=== PATIENT | female | born 1990 | race Caucasian/White ===

== ENCOUNTER 2024-11-10 17:20 | Outpatient (CLI) | payer OTHER, SELFPAY ==
[2024-11-10 17:39] VITALS: BP 115/57; PULSE 107; RESP 16; TEMP 37.1; O2SAT 97
[2024-11-10 17:44] VITALS: BMI 47.9
--- NOTE | 2024-11-17 13:15 | OB.TRI.NOTE ---
HPI - General General Date of Service: 11/10/24 HPI Narrative KESHA MOTA, is a 34 F who presents for pelvic pressure and possible contractions. PFSH PFSH Home Medications ?Medication ?Instructions ?Recorded ?Last Taken ?Type famotidine 40 mg tablet (Pepcid) 40 mg PO DAILY 11/10/24 11/10/24 08:00 History sertraline 50 mg tablet 50 mg PO DAILY 11/10/24 11/10/24 08:00 History Allergy/AdvReac Type Severity Reaction Status Date / Time penicillin G Allergy Rash Verified 11/10/24 17:45 NST FHR Rate Baby A Baseline: 145 Variability:: Moderate Accelerations:: 15 x 15 Decelerations:: None NST Reactive:: Yes Uterine Activity:: Occasional Assessment & Plan (1) Threatened labor: QUALIFIERS: Trimester: third trimester Qualified Code(s): O47.03 - False labor before 37 completed weeks of gestation, third trimester PLAN: Reactive NST
== END 2024-11-10 18:20 | disposition home or self-care (01) ==
LOC: WPOUT 17:37 → WP 17:38
PROVIDERS: PCP Nurse Practitioner Family; Referring Provider Obstetrics & Gynecology; Visit Provider Obstetrics & Gynecology
DX: O47.03 False labor before 37 completed weeks of gestation, third trimester (principal); Z79.899 Other long term (current) drug therapy; Z3A.37 37 weeks gestation of pregnancy
CPT/HCPCS: 59025; 59050; 99221; G0378

== ENCOUNTER 2024-12-05 07:13 | Inpatient (IN) | payer OTHER, SELFPAY ==
[2024-12-05] VITALS (52 sets, daily range): BP systolic 98–251; BP diastolic 54–149; PULSE 69–153; RESP 15–18; TEMP 36.4–37.6; O2SAT 90–100; BMI 46.8
[2024-12-05] MEDS: Lactated Ringers 1,000 ML 50 ML IV (07:45)
--- NOTE | 2024-12-05 07:56 | HP.PCM.OB_ITS ---
HPI - General General Date of Admission: 12/05/24 HPI Narrative KESHA MOTA, is a 34 F at 39.2 weeks gestation who presents for an induction of labor for obesity. Maternal Data Information VICTORIA Calculator Estimated Delivery Date Method Current WG Current Estimate 12/10/24 Manual 39w 2d PFSH [facility] Medical History Family history of hearing loss at age younger than 7 years Infertility Depression Anxiety Home Medications ?Medication ?Instructions ?Recorded ?Last Taken ?Type famotidine 40 mg tablet (Pepcid) 40 mg PO DAILY heartb urn 11/10/24 12/04/24 16:00 History sertraline 50 mg tablet 50 mg PO DAILY anx/dep 11/1012/04/24 16:00 History Allergy/AdvReac Type Severity Reaction Status Date / Time penicillin G Allergy Rash Verified 12/05/24 08:15 Surgical History History of surgery Social History Smoking Status: Never smoker History Elective abortions Hx Para 1 Spontaneous abortions Hx # Term Pregnancies Ectopic pregnancies Hx # Pregnancies Multiple births # of living children NST FHR Rate Baby A Baseline: 140 Variability:: Moderate Accelerations:: 15 x 15 Decelerations:: None NST Reactive:: Yes FHR Category:: Category I ROS Eyes Eyes: Denies blurry vision, change in vision or spots in vision ENT HEENT: Denies dizziness or headache(s) Cardiovascular Cardiovascular: Denies abdominal pain, chest pain or dyspnea Respiratory/Chest Respiratory/Chest: Denies cough, dyspnea, shortness of breath at rest or shortness of breath with exertion Gastrointestinal Gastrointestinal: Denies abdominal pain, diarrhea or vomiting Genitourinary Genitourinary: Denies change in urinary stream, difficulty urinating or dysuria Musculoskeletal Musculoskeletal: Reports none Integumentary Integumentary: Denies rash Neurologic Neurologic: Denies dizziness, headache(s), memory loss or weakness Psychiatric Psychiatric: Reports none Vital Signs Vital Signs Vital Signs: Weight Weight: 264 lb 9.6 oz Body Mass Index (BMI) 46.8 Physical Exam Const alert, oriented x3 and no apparent distress General Appearance: cooperative Orientation / Consciousness: awake Exam Limitations: no limitations HEENT normocephalic Head and Scalp: normal to inspection Eyes General Eye: normal appearance of both eyes Neck full ROM and no lymphadenopathy Lymph Lymphatic: no lymphadenopathy noted Chest inspection of chest normal Resp normal respiratory effort, normal air movement and clear to auscultation bilaterally Effort and Inspection: able to speak in complete sentences and symmetric chest movement Cardio regular rate and regular rhythm GI normal to inspection, nondistended, normoactive bowel sounds Manual OB Exam: presentation cephalic Back/Spine normal ROM Extremity full ROM and no calf tenderness Skin no rashes or lesions noted General Skin Exam: no breakdown Neuro oriented x3 and CN's II-XII intact bilaterally Psych mental status grossly normal and thought process normal Labs Labs Labs: Blood Type Pending Antibody Screen Pending Hct 33.1 % (37-47) L Hgb 11.0 g/dL (12.0-15.0) L Syphilis Total Ab Pending Assessment & Plan (1) 39 weeks gestation of : (2) Obesity affecting : (3) Encounter for induction of labor: (4) Anxiety and depression: (5) Anemia affecting : PLAN: Plan Admit to labor and delivery Routine labs Start IV fluids and run per orders GBS negative CE /-2 Worley bulb placed without difficulty and filled with 30 cc N/S Start Pitocin at 2 mu/min and increase per orders Epidural when indicated Anticipate Dr. Montague notified and is collaborating physician
[2024-12-05] MEDS: Oxytocin 15 Units/NS 250ml 15 UNITS/250 ML IV.SOLN 2 UNITS IV (08:09)
[2024-12-05 08:10] LABS: Absolute Lymphocyte Count 2.25 X10^3/uL (0.83-4.51); Basophil# 0.02 X10^3/uL; Basophil% 0.2 % (0-1); Eosinophil# 0.08 X10^3/uL; Eosinophils% 0.9 % (0-5); Hematocrit 33.1 % (37-47); Lymphocyte # 2.25 X10^3/ul (0.83-4.51); Lymphocyte % 25.1 % (19-41); Mean Corp Hgb Conc 33.2 g/dL (32-36); Mean Corpuscular Hgb 29.2 pg (27.0-32.0); Mean Corpuscular Volume 87.8 fL (81-99); Mean Platelet Vol. 11.5 fl (6.2-12.0); Monocyte# 0.56 X10^3/uL; Monocyte% 6.2 % (0-10); NRBC Flagged by Analyzer 0 % (0-5); Neutrophil # 6.01 X10^3/uL (2.7-7.7); Neutrophil % 66.9 % (47-70); Platelet Count 216 K/mm3 (150-450); RBC Distribution Width CV 13.8 % (11.6-14.6); RBC Distribution Width SD 42.9 fl (35.1-43.9); Red Blood Count 3.77 M/mm3 (4.2-5.4)
[2024-12-05] MEDS: 0.9% Normal Saline Single 100 ML IV.SOLN. INTRA-UTER (08:21)
[2024-12-05 10:33] LABS: Syphilis Antibodies Non-reactive
[2024-12-05] MEDS: Lactated Ringers 1,000 ML 999 ML IV (10:41)
[2024-12-05] MEDS: fentaNYL-bupivacaine (epidural) 100 ML BAG EPIDURAL ×3 (11:34→21:43)
[2024-12-05] MEDS: Ondansetron 4 MG/2 ML Vial IV ×2 (13:30→23:03)
--- NOTE | 2024-12-05 13:44 | PCM.PN.CNM ---
Subjective Subjective Patient seen at bedside. Comfortable with epidural. Objective Data Objective Data Vital Signs: Vital Signs Temp Pulse Resp BP Pulse Ox 98.3 F 85 17 110/71 100 12/05/24 10:35 12/05/24 13:38 12/05/24 13:39 12/05/24 13:38 12/05/24 13:39 Weight: 264 lb 9.6 oz Body Mass Index (BMI) 46.8 Intake & Output: Intake and Output for Last 24 Hours 12/03/24 12/04/24 12/05/24 23:59 23:59 23:59 Intake Total 8.24 / 8.24 Balance 8.24 / 8.24 Lab / Micro Data 12/05/24 07:45 Labs: Laboratory Results - last 24 hr 12/05/24 07:45: WBC 9.0, RBC 3.77 L, Hgb 11.0 L, Hct 33.1 L, MCV 87.8, MCH 29.2, MCHC 33.2, RDW Std Deviation 42.9, RDW Coeff of Jeanie 13.8, Plt Count 216, MPV 11.5, Immature Gran % (Auto) 0.700, Neut % (Auto) 66.9, Lymph % (Auto) 25.1, [place] % (Auto) 6.2, Eos % (Auto) 0.9, Baso % (Auto) 0.2, Absolute Neuts (auto) 6.0, Absolute Lymphs (auto) 2.25, Nucleated RBC % 0, Syphilis Total Ab Non-reactive, Blood Type AB POSITIVE, Antibody Screen NEGATIVE Assessment & Plan (1) Anemia affecting : (2) Anxiety and depression: (3) Encounter for induction of labor: (4) Obesity affecting : (5) 39 weeks gestation of : PLAN: Plan CE 4.5cm/ 80/-3 AROM for clear fluid IUPC and FSE placed per nursing request - difficulty tracing Continue pitocin IV and increase per orders
[2024-12-05] MEDS: Lactated Ringers 1,000 ML 200 ML IV (18:39)
[2024-12-05] MEDS: Mag Hydrox/Al Hydrox/Simeth 30 ML UDC PO (21:43)
--- NOTE | 2024-12-05 22:51 | OB.VAGDELI_ITS ---
Assessment & Plan (1) (spontaneous vaginal delivery): (2) Anemia affecting : (3) Anxiety and depression: (4) Obesity affecting : Maternal Data Information VICTORIA Calculator Estimated Delivery Date Method Current WG Current Estimate 12/10/24 Manual 39w 2d Vaginal Delivery Maternal Presentation Maternal Presentation: Medically Indicated Induction Maternal Presentation: at 39.2 weeks gestation for induction of labor for obesity. Type of Induction: Pitocin, Worley Bulb and Amniotomy Medical Reason for Induction: Maternal Medical Condition: list: (Obesity) Vaginal Delivery Information Procedure Performed: Spontaneous Vaginal Delivery Surgeon/Practitioner: Hiral Leigh Date of Procedure: 12/05/24 Pre-Procedure Diagnosis: Term gestation, Post-Procedure Diagnosis: , Live infant Type of anesthesia: Epidural Estimated Blood Loss: 150 Time of Delivery: 22:36 Findings Description of procedure: Patient progressed to complete dilation. With good maternal effort, head delivered followed by anterior shoulder and remainder of infant body without any force, delay, or traction. Vigorous female was delivered atraumatically and placed on maternal abdomen. Pitocin IV started for active management of the third stage of labor. 3 vessel cord clamped and cut after delay and infant placed immediately skin to skin with patient. Placenta delivered spontaneously and intact. After inspection, vagina and perineum are intact. Vaginal sweep performed. Fundus is firm 2 below U and bleeding is hemostatic. Sponge and sharps counts correct. Patient and infant bonding well at this time. Dr. Rosario notified of delivery. Routine post orders placed. Presentation: Vertex Amniotic Membrane Rupture Type: Artificial Amniotic Fluid Description: Clear Placental Delivery Description: Spontaneous Placenta Disposition: [facility] Specimen collected: No Cord Vessel Description: 3 Vessels Cord Entanglement: None Nuchal Cord Compression: Without compression A Gender: Female (1 minute): 9 (5 minute): 9 Delayed Cord Clamping: Yes Lunchroom Worker research phlebotomist: No Post Vaginal Deli Medications given after delivery: IV Pitocin Episiotomy Description: None Laceration: None Complication Complications: No
[2024-12-05] MEDS: Oxytocin 15 Units/NS 250ml 15 UNITS/250 ML IV.SOLN 83 UNITS IV (23:06)
[2024-12-06] VITALS (27 sets, daily range): BP systolic 102–125; BP diastolic 57–80; PULSE 78–115; RESP 15–18; TEMP 36.4–37; O2SAT 91–99
[2024-12-06] MEDS: Acetaminophen 500 MG Tablet 1000 MG PO (01:14)
[2024-12-06 06:19] LABS: Absolute Lymphocyte Count 2.22 X10^3/uL (0.83-4.51); Absolute Neutrophil Count 12.5 X10^3/uL (2.0-7.7); Basophil# 0.02 X10^3/uL; Basophil% 0.1 % (0-1); Eosinophil# 0.03 X10^3/uL; Eosinophils% 0.2 % (0-5); Hematocrit 32.2 % (37-47); Hemoglobin 10.9 g/dL (12.0-15.0); Lymphocyte # 2.22 X10^3/ul (0.83-4.51); Lymphocyte % 13.9 % (19-41); Mean Corp Hgb Conc 33.9 g/dL (32-36); Mean Corpuscular Hgb 29.5 pg (27.0-32.0); Mean Corpuscular Volume 87.3 fL (81-99); Monocyte# 1.12 X10^3/uL; NRBC Flagged by Analyzer 0 % (0-5); Neutrophil # 12.53 X10^3/uL (2.7-7.7); Neutrophil % 78.2 % (47-70); Platelet Count 203 K/mm3 (150-450); RBC Distribution Width CV 13.5 % (11.6-14.6); RBC Distribution Width SD 41.7 fl (35.1-43.9); Red Blood Count 3.69 M/mm3 (4.2-5.4)
--- NOTE | 2024-12-06 08:40 | PCM.PN.OB ---
Subjective Subjective Doing well per patient and nursing staff. Ambulating and taking PO without difficulty. Voiding and passing flatus. Pain controlled. , services for assistance. Denies headache, visual changes, chest pain, shortness of breath, leg pain or increased bleeding. Lochia normal. Objective Data Objective Data Vital Signs: Vital Signs Temp Pulse Resp BP Pulse Ox O2 Del Method 97.6 F L 79 16 107/59 L 97 Room Air 12/06/24 08:00 12/06/24 08:12 12/06/24 08:00 12/06/24 08:12 12/06/24 08:12 12/06/24 08:00 Oxygen Delivery Method Room Air Weight: 264 lb 9.6 oz Body Mass Index (BMI) 46.8 Intake & Output: Intake and Output for Last 24 Hours 12/04/24 12/05/24 12/06/24 23:59 23:59 23:59 Intake Total 3066.67 / 3066.67 250 / 250 Output Total 1050 / 1050 1700 / 1700 Balance / -1450 / -1450 Lab / Micro Data 12/06/24 06:10 Labs: Laboratory Results - last 24 hr 12/05/24 07:45: Syphilis Total Ab Non-reactive, Blood Type AB POSITIVE, Antibody Screen NEGATIVE 12/06/24 06:10: WBC 16.0 H, RBC 3.69 L, Hgb 10.9 L, Hct 32.2 L, MCV 87.3, MCH 29.5, MCHC 33.9, RDW Std Deviation 41.7, RDW Coeff of Jeanie 13.5, Plt Count 203, MPV 11.0, Immature Gran % (Auto) 0.600, Neut % (Auto) 78.2 H, Lymph % (Auto) 13.9 L, [place] % (Auto) 7.0, Eos % (Auto) 0.2, Baso % (Auto) 0.1, Absolute Neuts (auto) 12.5 H, Absolute Lymphs (auto) 2.22, Nucleated RBC % 0 ROS Constitutional Constitutional: Reports systems reviewed and no addt'l complaints, except as documented; Denies headache(s) Eyes Eyes: Denies acute decrease in peripheral vision, blurry vision or change in vision ENT HEENT: Reports systems reviewed and no addt'l complaints, except as documented Cardiovascular Cardiovascular: Denies chest pain or dizziness Respiratory/Chest Respiratory/Chest: Denies cough, dyspnea, dyspnea on exertion, shortness of breath at rest or shortness of breath with exertion Gastrointestinal Gastrointestinal: Denies abdominal pain, diarrhea, nausea or vomiting Genitourinary Genitourinary: Denies abdominal discomfort Musculoskeletal Musculoskeletal: Denies limited range of motion Integumentary Integumentary: Reports systems reviewed and no addt'l complaints, except as documented Neurologic Neurologic: Reports systems reviewed and no addt'l complaints, except as documented Psychiatric Psychiatric: Reports systems reviewed and no addt'l complaints, except as documented Endocrine Endocrinology: Reports systems reviewed and no addt'l complaints, except as documented Hematologic/Lymphatic Hematologic/Lymphatic: Reports systems reviewed and no addt'l complaints, except as documented Allergic/Immunologic Allergic/Immunologic: Reports systems reviewed and no addt'l complaints, except as documented Physical Exam Const alert and oriented x3 General Appearance: cooperative Orientation / Consciousness: awake, oriented to person, oriented to place and oriented to time Exam Limitations: no limitations HEENT normocephalic Head and Scalp: normal to inspection, normocephalic and atraumatic Face and Sinus: normal facial exam Eyes General Eye: normal appearance of both eyes Neck full ROM Chest Chest: symmetrical chest wall rise Resp normal respiratory effort and normal air movement Auscultation: clear to auscultation bilaterally Cardio regular rate, regular rhythm, S1 normal heart sound, S2 normal heart sound, no murmurs, no rub, no gallops and no clicks GI normal to inspection, nondistended, normoactive bowel sounds and non-tender appearance of the vagina normal Bladder / Kidney Exam: no CVA tenderness Back/Spine normal ROM Extremity normal to inspection and full ROM Skin no rashes or lesions noted Neuro oriented x3, CN's II-XII intact bilaterally and moves all extremities Sensorium / Orientation: awake, alert and oriented to person Motor Exam: clonus absent Deep Tendon Reflexes: Rt Patellar (L4): 2+ and Lt Patellar (L4): 2+ Assessment & Plan (1) (spontaneous vaginal delivery): (2) Lactating mother: PLAN: Plan 1) Routine PPD#1 2) Vitals stable 3) I&O 4) Pain management 5) services PRN 6) Planning D/C home tomorrow
[2024-12-06] MEDS: Sertraline 50 MG Tablet PO (10:57)
[2024-12-07 02:00] VITALS: BP 98/53; PULSE 65; RESP 16; TEMP 36.2; O2SAT 98
[2024-12-07 03:17] VITALS: PULSE 68; O2SAT 97
[2024-12-07 03:18] VITALS: BP 92/53; PULSE 64
[2024-12-07 07:00] VITALS: BP 125/82; PULSE 72; RESP 16; TEMP 36.3; O2SAT 99
[2024-12-07 07:20] VITALS: BP 125/82; PULSE 71
--- NOTE | 2024-12-07 08:52 | PCM.PN.OB ---
Subjective Subjective Doing well. Ambulating and voiding without difficulty. Mild lochia. Breast feeding. Objective Data Objective Data Vital Signs: Vital Signs Temp Pulse Resp BP Pulse Ox O2 Del Method 97.4 F L 71 16 125/82 H 99 Room Air 12/07/24 07:00 12/07/24 07:20 12/07/24 07:00 12/07/24 07:20 12/07/24 07:00 12/07/24 07:00 Oxygen Delivery Method Room Air Weight: 120.021 kg Body Mass Index (BMI) 46.8 Intake & Output: Intake and Output for Last 24 Hours 12/05/24 12/06/24 12/07/24 23:59 23:59 23:59 Intake Total 3066.67 / 3066.67 250 / 250 Output Total 1050 / 1050 1700 / 1700 Balance -1450 / -1450 Lab / Micro Data 12/06/24 06:10 ROS Constitutional Constitutional: Denies fatigue, fever(s) or malaise Eyes Eyes: Denies change in vision ENT HEENT: Denies dizziness or headache(s) Cardiovascular Cardiovascular: Denies chest pain, dyspnea or lightheadedness Respiratory/Chest Respiratory/Chest: Denies cough or dyspnea Gastrointestinal Gastrointestinal: Denies change in bowel habits Genitourinary Genitourinary: Denies burning urination or genital lesions Integumentary Integumentary: Denies rash Neurologic Neurologic: Denies confusion, dizziness, headache(s), numbness or weakness Physical Exam Const alert and no apparent distress Narrative: Fundus firm, below umbilicus. Assessment & Plan (1) (spontaneous vaginal delivery): (2) Lactating mother: PLAN: Plan discharge home breast feeding
--- NOTE | 2024-12-07 08:53 | DS.PCM_ITS ---
Providers Date of Admission: 12/05/24 Date of Discharge: 12/07/24 Primary Care Physician: OLGA RODRIGUEZ Reason For Visit: INDUCTION Diagnosis Discharge Diagnosis (1) (spontaneous vaginal delivery): Status: Acute Code(s): O80 - Encounter for full-term uncomplicated delivery (2) Lactating mother: Status: Acute Code(s): Z39.1 - Encounter for care and examination of lactating mother Plan discharge home breast feeding Medications at Discharge Home Medications famotidine 40 mg tablet (Pepcid) 40 mg PO DAILY heartburn 11/10/24 sertraline 50 mg tablet 50 mg PO DAILY anx/dep 11/10/24 Hospital Course Operations None Procedures None Summary of Care Provided Minutes Spent on Discharge: 21 Hospital Course: IOL for obesity. Uncomplicated delivery and . Breast feeding Physical Exam Const alert and no apparent distress Narrative: Fundus firm, below umbilicus. Weight / BMI Weight Weight: 120.021 kg Body Mass Index (BMI) 46.8 ABG / Lab / Microbiology Data 12/06/24 06:10 D/C Instructions May resume sexual activity in: 6 weeks DC O2, CPAP, BIPAP Needs Home O2 Discharge instructions: No Please Follow Up With: Grace Rosario MD When: Follow up with our office in 1-2 and 6 weeks or as needed. [phone] Meaningful Use Info Meaningful Use Meaningful Use Diagnoses (Choose all that apply): None applicable Ischemic Stroke Statin Dosing Therapy Reference: STATIN DOSE THERAPY REFERENCE: * Patients > 75 years receive moderate or high dose statin therapy. * Patients 75 years or YOUNGER should receive HIGH intensity statin dose unless contraindicated. You will be required to document reason for non-treatment if statin daily dose does not meet guidelines. HIGH DOSE STATIN THERAPY DAILY Atorvastatin > than or = to 40 mg Rosuvastatin > than or = to 20 mg Amlodipine + Atorvastatin > than or = to 2.5/40 mg Ezetimibe + Simvastatin 10/80 mg Simvastatin 80mg Discharge Plan Admission Admit Date/Time: 12/05/24 07:13 Primary Reason for Your Visit: delivery Attending Provider: Hiral Leigh Primary Care Provider: EFREN PERES Discharge Orders/Prescriptions Prescriptions: Continued sertraline 50 mg tablet 50 mg PO DAILY famotidine [Pepcid] 40 mg tablet 40 mg PO DAILY Referrals / Follow Up: JA,EFREN, PROPERTY MANAGEMENT BOOKKEEPER-C [Primary Care Provider] - Disposition Disposition (needs filled in before D/C Order can be placed): Home, Self Care
[2024-12-07] MEDS: Sertraline 50 MG Tablet PO (09:47)
--- NOTE | 2024-12-07 12:03 | CASEMGMT ---
Social Work Assessment Labor and Delivery Unit Patient Address:[address] [place] [id number] Phone number: [phone] Date of Referral: 12/05/24 Time of Referral:? [id number] Referred By: Angelic Paz Date of Intervention: ??12/07/24 Time of Intervention:? 0 Reason for Referral:? mental health Sw completed chart review and acknowledges social work consult due to maternal mental health history. Sw presented to bedside and introduced self to mother of baby (MOB- Sana) and father of baby (FOB- Mahin). Also present was paternal grandma, and MOB stated it was okay to complete assessment with visitor present. History obtained from: medical records, MOB and FOB. Household composition: Currently residing in the family home is DEEPA, TIFF, DEEPA's 12 year old daughter (from a former relationship), Amparo. baby to be included in residence when ready for discharge. Parents deny any problems or concerns with housing. Patient's parent/guardian status:? ?MOB states that she and TIFF met on the internet and then when they met in person for the first time, [place], they have been together now for 8 years. No concerns reported of domestic violence or intimate partner violence. Medical History: ?DEEPA is 34 year old female who is 2, para 1- now 2 following labor and delivery of . DEEPA received routine care during with [facility]. DEEPA presented to hospital and delivered baby via vaginal delivery on 12/05/24 at 39 weeks gestation. Baby girl, named Yuridia Lujan, was born weighing 7lb 12oz with apgars of 9 and 9 at one and five minutes of life, respectfully. DEEPA is breast feeding and reports baby will be followed by Dr.l Perdomo at [facility]. Educational Status:? Both parents graduated from high school, FOB has college education and MOB got her cosmetology license. Financial Status: Both parents are gainfully employed outside of the home. 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 Supplies: All necessary baby supplies obtained including: car seat, safe sleep space, clothes, diapers and wipes. Childcare/Caregiver(s):? MOB and FOAltagracia will be the primary caregivers to baby along with paternal grandma. Transportation:?? NO barriers, both parents have their drivers license and reliable means of transportation. Programs/Agencies Involved: ???Parents are not connected to any community agencies that assist them financially. Children Services/Legal Issues:??? No prior involvement with children services, no issues or concerns warranting referral to be made at this time. Behavioral Health Issues: ??Mental Health History:??FOB denies mental health history. MOB states that she has been diagnosed with anxiety and depression and is currently prescribed zoloft to help her manage her symptoms. MOB states that she believes that her symptoms are managed and she does well to utilize healthy and safe coping mechanisms when she starts to feel overwhelmed or frustrated. ? Substance Use History:?Parents deny substance use prior to and during . ? Family History: MOB states that she does recognize once of her parents as having a history with substance use. Importance of recognizing genetic history and using healthy and safe coping mechanisms opposed to seeking comfort from drugs or alcohol. Parents express understanding. ??? Drug Screens: No drug screens observed in chart review. Family/Social Stressors:? Parents deny any issues, concerns or stressors at this time. Support Systems: MOB states that FOB and paternal grandma are her biggest supports and helps. Depression/Shaken Baby/Safe Sleeping: Wendy discussed signs and symptoms of baby blues and depression and anxiety to parents. MOB states that she was not diagnosed with anxiety, but states that she did have some anxious thoughts after her first daughter was born. MOB states that she feels bonded to baby now and is not feeling down, sad, or anxious. MOB states that she keven by talking about her feelings. MOB states that she always talks things through with FOB. FOB states that he would be able to recognize if MOB were struggling with her mental health, and thinks that he would know how to offer support. Wendy educated parents on shaken baby prevention and ABCs of safe sleep. Parents express understanding. ASSESSMENT:? MOB and baby admitted following labor and delivery of . MOB states that delivery went well and she is happy baby is here and healthy. MOB states that she is feeling good physically and mentally following labor and delivery. MOB with mental health history positive for anxiety and depression. MOB states that she is prescribed zoloft which she can tell a difference with. MOB agreed to talk to her OBGYN or prescriber if she feels as though she is experiencing any mental health symptoms during this period. MOB states that she has obtained all necessary baby supplies and has natural supports in place. FOB observed to sit comfortably on couch and participated actively throughout conversation. FOB states that he does not believe in therapy for himself, but knows that it has been helpful for MOB in the past, so he is supportive and understanding. PLAN:?? No other services requested or indicated. MOB and baby to be discharged when medically ready. Parents were provided literature regarding: signs and symptoms of baby blues and mood and anxiety disorders, Help Me Grow, shaken baby prevention, ABCs of safe sleep and a list of critical access hospital resources that are available for them should any needs present themselves. Sandra Bradford, CEMENT MASON, GROUND EQUIPMENT MECHANIC
== END 2024-12-07 12:26 | disposition home or self-care (01) | DRG 807 ==
PROVIDERS: Obstetrics & Gynecology; Admitting Provider Advanced Practice Midwife; PCP Nurse Practitioner Family; Referring Provider Advanced Practice Midwife; Visit Provider Advanced Practice Midwife
DX: O99.214 Obesity complicating childbirth (principal); Z37.0 Single live birth; O99.344 Other mental disorders complicating childbirth; F32.A Depression, unspecified; F41.9 Anxiety disorder, unspecified; O99.02 Anemia complicating childbirth; Z3A.39 39 weeks gestation of pregnancy; Z79.899 Other long term (current) drug therapy
CPT/HCPCS: 59025; 59050; 85025; 86780; 86850; 86900; 86901; J2405